=== PATIENT | female | born 1995 | race Caucasian/White ===

== ENCOUNTER 2016-08-31 22:32 | Emergency (ER) | payer MEDICAID ==
[~2016-08-31] VITALS: Ht 149.9 cm; Wt 62.2 kg
[2016-08-31 22:36] VITALS: BP 113/73
== END 2016-08-31 22:56 | disposition home or self-care (01) ==
LOC: ED 22:50
DX: H10.021 Other mucopurulent conjunctivitis, right eye (principal); H10.022 Other mucopurulent conjunctivitis, left eye; Z88.5 Allergy status to narcotic agent
CPT/HCPCS: 99283

== ENCOUNTER 2017-02-14 11:01 | Emergency (ER) | payer MEDICAID ==
[~2017-02-14] VITALS: Ht 149.9 cm; Wt 65.9 kg
[2017-02-14 11:06] VITALS: BP 118/77
[2017-02-14 12:17] LABS: RAPID INFLUENZA A Negative (Negative); RAPID INFLUENZA B Negative (Negative)
== END 2017-02-14 13:06 | disposition home or self-care (01) ==
LOC: ED 12:45
DX: J00 Acute nasopharyngitis [common cold] (principal); Z88.5 Allergy status to narcotic agent
CPT/HCPCS: 71020; 87400

== ENCOUNTER 2017-10-05 10:55 | Emergency (ER) | payer SELFPAY ==
[~2017-10-05] VITALS: Ht 149.9 cm; Wt 65.0 kg
[2017-10-05] MEDS ORDERED: MAALOX/HYOSCYAMINE/LIDOCAINE 45 ML BTL PO ONE (12:30)
[2017-10-05 12:39] LABS: BASOPHILS # (AUTO) 0.03 x10^3/uL (0-0.1); BASOPHILS % (AUTO) 1 % (0-1); EOSINOPHILS # (AUTO) 0.39 x10^3/uL (0-0.4); EOSINOPHILS % (AUTO) 6 % (1-7); LYMPHOCYTES # (AUTO) 2.34 x10^3/uL (1-3.4); LYMPHOCYTES % (AUTO) 36 % (22-44); MD NO; MEAN CORPUSCULAR HEMOGLOBIN 31.8 pg (27.0-34.8); MEAN CORPUSCULAR HGB CONC 34.4 g/dL (32.4-35.8); MEAN CORPUSCULAR VOLUME 92.5 fL (80-100); MEAN PLATELET VOLUME 7.7 fL (7.4-10.4); MONOCYTES # (AUTO) 0.55 x10^3/uL (0.2-0.8); MONOCYTES % (AUTO) 9 % (2-9); NEUTROPHILS # (AUTO) 3.13 x10^3/uL (1.8-6.8); NEUTROPHILS % (AUTO) 49 % (42-75); PLATELET COUNT 307 x10^3/uL (130-400); RED BLOOD COUNT 4.53 x10^6/uL (3.82-5.3); RED CELL DISTRIBUTION WIDTH 12.2 % (9.6-15.2)
[2017-10-05 12:47] LABS: ALANINE AMINOTRANSFERASE 21 U/L (12-78); ALBUMIN 3.9 g/dL (3.4-5.0); CALCIUM 8.8 mg/dL (8.5-10.1); CHLORIDE 109 mmol/L (98-107); CREATININE 0.86 mg/dL (0.55-1.02)
[2017-10-05 12:55] LABS: ALKALINE PHOSPHATASE 80 U/L (45-117); TOTAL PROTEIN 7.9 g/dL (6.4-8.2)
[2017-10-05 12:57] LABS: ANION GAP 6 mmol/L (5-15)
[2017-10-05] MEDS ORDERED: MAALOX/HYOSCYAMINE/LIDOCAINE 45 ML BTL ONE (13:19)
[2017-10-05 13:36] VITALS: BP 96/53
== END 2017-10-05 13:40 | disposition home or self-care (01) ==
LOC: ED 13:34
DX: K29.00 Acute gastritis without bleeding (principal); R51 Headache; Z90.89 Acquired absence of other organs
CPT/HCPCS: 36415; 80053; 83690; 84703; 85025; 99284

== ENCOUNTER 2018-09-15 17:25 | Emergency (ER) | payer SELFPAY ==
[~2018-09-15] VITALS: Ht 149.9 cm; Wt 69.8 kg
[2018-09-15 17:35] VITALS: BP 110/77
--- NOTE | 2018-09-15 17:57 | NUR ---
PT MAY HAVE BEEN EXPOSED TO CHLAMYDIA OR GONORRHEA AND WANTS TO BE TREATED. HAVING NO SYMPTOMS. LMP 1 WEEK AGO NOT USING PROTECTION WITH PARTNER
--- NOTE | 2018-09-15 18:01 | NUR ---
PELVIC EXAM PERFORMED BY PROVIDER-SAMPLE OBTAINED FOR CULTURE-SENT TO LAB
--- NOTE | 2018-09-15 18:11 | NUR ---
CLEAN CATCH URINE OBTAINED-SENT TO LAB AT 1811
[2018-09-15] MEDS ORDERED: LIDOCAINE-MPF 1%, 2ML ONE (18:14)
[2018-09-15] MEDS ORDERED: CEFTRIAXONE 250 MG ONE (18:15)
[2018-09-15] MEDS ORDERED: AZITHROMYCIN 500 MG TABLET ONE (18:15)
--- NOTE | 2018-09-15 18:28 | NUR ---
MEDICATED PER EMAR-PATIENT TOLERATED WELL
[2018-09-15] MEDS ORDERED: AZITHROMYCIN 500 MG TABLET PO ONE (18:30)
[2018-09-15] MEDS ORDERED: CEFTRIAXONE 250 MG IM ONE (18:30)
[2018-09-15 19:16] LABS: CULTURE INDICATED? YES; MICROSCOPIC INDICATED
[2018-09-15 19:17] LABS: HCG UR SG 1.025 (1.003-1.030)
--- NOTE | 2018-09-15 19:29 | NUR ---
UA RESULTS POSTED-PROVIDER MADE AWARE-
--- NOTE | 2018-09-15 19:39 | NUR ---
PT GIVEN DC INSTRUCTIONS. PT'S AOX4. RESPS EVEN AND UNLABORED. PT AMB TO DC WITH STEADY GAIT.
== END 2018-09-15 19:41 | disposition home or self-care (01) ==
LOC: ED 19:31
DX: N89.8 Other specified noninflammatory disorders of vagina (principal); R30.0 Dysuria
CPT/HCPCS: 81001; 81025; 87086; 87491; 87591; 96372; 99283; J0696